=== PATIENT | female | born 1990 | race Hispanic/Latino ===

== ENCOUNTER 2018-03-17 11:43 | Inpatient (IN) | payer SELFPAY ==
[~2018-03-17] VITALS: Ht 160 cm; Wt 68.5 kg
[2018-03-17] MEDS ORDERED: EPHEDRINE SULFATE 50 MG/ML AMPULE IV ONE (12:00)
[2018-03-17] MEDS ORDERED: ATROPINE SULFATE 0.4 MG/ML 1 ML VIAL IJ ONE (12:00)
[2018-03-17] MEDS ORDERED: ONDANSETRON HCL 4 MG/2 ML VIAL IVP ONE (12:00)
[2018-03-17] MEDS ORDERED: LACTATED RINGERS 1000ML 1,000 ML IV PRN (12:05)
[2018-03-17 12:20] LABS: APPEARANCE,URINE Cloudy (CLEAR); BILIRUBIN,URINE Large (NEGATIVE); COLOR,URINE Dark Yellow (YELLOW); GLUCOSE, URINE (UA) Negative (NEGATIVE); KETONES,URINE Negative (NEGATIVE); LEUKOCYTE ESTERASE ,URINE Small (NEGATIVE); NITRATE,URINE Positive (NEGATIVE); OCCULT BLOOD,URINE Negative (NEGATIVE); PROTEIN,URINE POS 1+ (NEGATIVE)
[2018-03-17 12:25] LABS: BACTERIA,URINE Rare /HPF (None Seen); RBC,URINE 0-1 /HPF (0-1); SQUAMOUS EPITHELIAL CELL,UR Rare /HPF (0-2); WBC,URINE 0-1 /HPF (0-1)
[2018-03-17 12:45] LABS: HEMATOCRIT 33.6 % (36-48); MEAN CORPUSCULAR HEMOGLOBIN 31.9 pg (27.0-33.0); MEAN CORPUSCULAR HGB CONC 34.4 g/dL (32.0-36.0); MEAN CORPUSCULAR VOLUME 92.7 fL (79-99); NUCLEATED RED BLOOD CELLS 0.1 % (0.0-0.19); PLATELET COUNT (AUTO) 87 K/uL (130-400); RED BLOOD CELL COUNT(AUTO) 3.62 MIL/uL (4.00-5.50); RED CELL DISTRIBUTION WIDTH 14.4 % (11.0-15.5); WHITE BLOOD COUNT (AUTO) 5.8 K/uL (4.8-10.8)
[2018-03-17] MEDS ORDERED: CALDOLOR 800MG+NS 250ML 250 ML IV PRN (12:45)
[2018-03-17] MEDS ORDERED: LACTATED RINGERS 1000ML 1,000 ML IV SCH (12:45)
[2018-03-17] MEDS ORDERED: CEFAZOLIN SODIUM 1 GM VIAL IVP PRN (12:45)
[2018-03-17] MEDS ORDERED: OXYTOCIN 10 USP UNITS/ML ONE ×2 (12:54→22:05)
[2018-03-17] MEDS ORDERED: CEFAZOLIN SODIUM 1 GM VIAL ONE (12:54)
[2018-03-17] MEDS ORDERED: CALDOLOR 800MG+NS 250ML 250 ML IV ONE (12:54)
[2018-03-17] MEDS ORDERED: CITRIC ACID/SODIUM CITRATE 30 ML UDCUP ONE (13:11)
[2018-03-17] MEDS ORDERED: METOCLOPRAMIDE 10 MG/2 ML VIAL ONE (13:11)
[2018-03-17] MEDS ORDERED: PROPOFOL 10 MG/ML 20ML VIAL IV ONE ×2 (13:15→14:53)
[2018-03-17] MEDS ORDERED: MIDAZOLAM HCL 1 MG/ML 2ML VIAL ONE (13:15)
[2018-03-17] MEDS ORDERED: FENTANYL CITRATE PF 50 MCG/1 ML 2ML VIAL ONE ×2 (13:15→14:20)
[2018-03-17 13:19] LABS: BASOPHILS % (AUTO) 0.4 % (0.0-5.0); EOSINOPHILS % (AUTO) 0.4 % (0.0-8.0); HEMATOCRIT 32.4 % (36-48); LYMPHOCYTES % (AUTO) 24.2 % (21.0-51.0); MEAN CORPUSCULAR HEMOGLOBIN 32.2 pg (27.0-33.0); MEAN CORPUSCULAR HGB CONC 34.6 g/dL (32.0-36.0); MEAN CORPUSCULAR VOLUME 93.1 fL (79-99); MONOCYTES % (AUTO) 5.8 % (3.0-13.0); NEUTROPHILS % (AUTO) 69.2 % (40.0-77.0); NUCLEATED RED BLOOD CELLS 0.1 % (0.0-0.19); PLATELET COUNT (AUTO) 79 K/uL (130-400); RED BLOOD CELL COUNT(AUTO) 3.47 MIL/uL (4.00-5.50); RED CELL DISTRIBUTION WIDTH 14.7 % (11.0-15.5)
[2018-03-17 13:33] LABS: CREATININE 0.8 mg/dL (0.5-1.5); POTASSIUM 3.9 mmol/L (3.5-5.1)
[2018-03-17 13:34] LABS: INR 0.87 (0.85-1.15); PARTIAL THROMBOPLASTIN TIME 26.8 SEC (26.3-35.5); PROTHROMBIN TIME 9.2 SEC (9.6-11.6)
[2018-03-17 13:37] LABS: ALBUMIN 1.9 g/dL (3.5-5.0); BILIRUBIN,TOTAL 1.6 mg/dL (0.2-1.0); TOTAL PROTEIN, SERUM 6.1 g/dL (6.0-8.3); URIC ACID 5.2 mg/dL (2.6-7.2)
[2018-03-17] MEDS ORDERED: METHYLERGONOVINE MALEATE 0.2 MG/1 ML ML ONE ×2 (14:03→17:04)
[2018-03-17] MEDS ORDERED: CARBOPROST TROMETHAMINE 250 MCG/ML AMP IM ONE ×2 (14:04→14:07)
[2018-03-17] MEDS ORDERED: MORPHINE SULFATE 10 MG/ML 1ML SYG ONE (14:10)
[2018-03-17] MEDS ORDERED: DiphenhydrAMINE HCL 50 MG/ML VIAL IV PRN (15:45)
[2018-03-17] MEDS ORDERED: MEPERIDINE 10MG/ML 50ML PCA 50 ML IV PRN (15:45)
[2018-03-17] MEDS ORDERED: ONDANSETRON HCL 4 MG/2 ML VIAL IV PRN (15:45)
[2018-03-17] MEDS ORDERED: DIPHENHYDRAMINE HCL 25 MG CAPSULE PO PRN (15:45)
[2018-03-17] MEDS ORDERED: DEXTROSE 5 %-0.45 % NACL 1,000 ML IV PRN (15:45)
[2018-03-17] MEDS ORDERED: PROMETHAZINE HCL 25 MG/ML 1ML AMPULE IM PRN (15:45)
[2018-03-17] MEDS ORDERED: NALOXONE HCL 0.4 MG/1 ML ML IVP PRN (15:45)
[2018-03-17 16:08] LABS: AMPHET/METH SCREEN,URINE NEGATIVE (NEGATIVE); BARBITURATE SCREEN, URINE NEGATIVE (NEGATIVE); BENZODIAZEPINES SCREEN,URINE NEGATIVE (NEGATIVE); CANNABINOID SCREEN,URINE NEGATIVE (NEGATIVE); COCAINE SCREEN,URINE NEGATIVE (NEGATIVE); OPIATE SCREEN,URINE NEGATIVE (NEGATIVE); PHENCYCLIDINE SCREEN,URINE NEGATIVE (NEGATIVE)
[2018-03-17] MEDS: METHYLERGONOVINE MALEATE 0.2 MG/1 ML ML IM SCH (17:15)
[2018-03-17] MEDS ORDERED: MEPERIDINE-PF 50 MG/ML SYG ONE (18:16)
[2018-03-17] MEDS ORDERED: RACEPINEPHRINE HCL 2.25% 0.5 ML NEB SOLN NEB PRN (18:30)
[2018-03-17] MEDS ORDERED: IPRATROPIUM/ALBUTEROL SULFATE 3 ML SOLUTION IH PRN (18:30)
[2018-03-17] MEDS ORDERED: MAGNESIUM SULFATE 1,000 ML IV PRN (21:48)
[2018-03-17] MEDS ORDERED: MAGNESIUM 4GM PREMIX 100ML 100 ML IV ONE (21:50)
[2018-03-17] MEDS ORDERED: MAGNESIUM SULFATE 1,000 ML IV ONE (21:50)
[2018-03-17] MEDS ORDERED: MAGNESIUM 4GM PREMIX 100ML 100 ML IV PRN (22:00)
[2018-03-17] MEDS ORDERED: CALCIUM GLUCONATE 1 GM/10 ML VIAL IVP PRN (22:00)
[2018-03-17] MEDS ORDERED: CEFAZOLIN 2GM / 50 ML 50 ML IV SCH (22:45)
[2018-03-17] MEDS: CEFAZOLIN SODIUM 1 GM VIAL IVP SCH (22:59)
[2018-03-17] MEDS: LACTATED RINGERS 1000ML 1,000 ML IV SCH (23:15)
[2018-03-17 23:39] LABS: MEAN CORPUSCULAR HGB CONC 33.6 g/dL (32.0-36.0)
[2018-03-17] MEDS ORDERED: MISOPROSTOL 200 MCG TABLET ONE (23:43)
[2018-03-17 23:51] LABS: BASOPHILS % (AUTO) 0.3 % (0.0-5.0); LYMPHOCYTES % (AUTO) 6.3 % (21.0-51.0); MEAN CORPUSCULAR HEMOGLOBIN 30.3 pg (27.0-33.0); MEAN CORPUSCULAR VOLUME 90.4 fL (79-99); MONOCYTES % (AUTO) 4.3 % (3.0-13.0); NEUTROPHILS % (AUTO) 89.1 % (40.0-77.0); PLATELET COUNT (AUTO) 148 K/uL (130-400); RED CELL DISTRIBUTION WIDTH 14.9 % (11.0-15.5); WHITE BLOOD COUNT (AUTO) 13.9 K/uL (4.8-10.8)
[2018-03-17 23:55] LABS: INR 0.93 (0.85-1.15); PARTIAL THROMBOPLASTIN TIME 26.9 SEC (26.3-35.5); PROTHROMBIN TIME 9.8 SEC (9.6-11.6)
[2018-03-18] VITALS (28 sets, daily range): BP systolic 105–148; BP diastolic 48–93
[2018-03-18 00:02] LABS: ALBUMIN 1.4 g/dL (3.5-5.0); BILIRUBIN,TOTAL 2.8 mg/dL (0.2-1.0); POTASSIUM 4.6 mmol/L (3.5-5.1); TOTAL PROTEIN, SERUM 4.2 g/dL (6.0-8.3); URIC ACID 5.3 mg/dL (2.6-7.2)
[2018-03-18] MEDS: MISOPROSTOL 200 MCG TABLET PR SCH ×2 (00:05)
[2018-03-18] MEDS ORDERED: FUROSEMIDE 10 MG/ML 2ML VIAL ONE (00:37)
[2018-03-18] MEDS: FUROSEMIDE 10 MG/ML 4ML VIAL IV SCH ×2 (00:56→05:24)
[2018-03-18] MEDS ORDERED: SODIUM CHLORIDE 0.9% 1000ML 1,000 ML IV ONE (02:23)
[2018-03-18] MEDS ORDERED: LIDOCAINE HCL-MPF 1% 2ML VIAL IVP PRN (02:30)
[2018-03-18] MEDS ORDERED: POTASSIUM CHLORIDE 20MEQ/100ML 100 ML IV PRN (02:30)
[2018-03-18] MEDS ORDERED: POTASSIUM CHLORIDE 10% ELIXIR 20 MEQ/15 ML UDCUP PO PRN (02:30)
[2018-03-18] MEDS ORDERED: POTASSIUM CHLORIDE 20 MEQ ERTAB PO PRN (02:30)
[2018-03-18 03:01] LABS: BASOPHILS % (AUTO) 0.2 % (0.0-5.0); HEMATOCRIT 27.5 % (36-48); LYMPHOCYTES % (AUTO) 8.3 % (21.0-51.0); MEAN CORPUSCULAR HEMOGLOBIN 30.2 pg (27.0-33.0); MEAN CORPUSCULAR HGB CONC 33.6 g/dL (32.0-36.0); MEAN CORPUSCULAR VOLUME 90.1 fL (79-99); NEUTROPHILS % (AUTO) 85.5 % (40.0-77.0); PLATELET COUNT (AUTO) 137 K/uL (130-400); RED BLOOD CELL COUNT(AUTO) 3.05 MIL/uL (4.00-5.50); RED CELL DISTRIBUTION WIDTH 15.2 % (11.0-15.5); WHITE BLOOD COUNT (AUTO) 16.3 K/uL (4.8-10.8)
[2018-03-18] MEDS: LACTATED RINGERS 1000ML 1,000 ML IV SCH (05:25)
[2018-03-18] MEDS ORDERED: FUROSEMIDE 10 MG/ML 2ML VIAL IV ONE (07:00)
[2018-03-18] MEDS ORDERED: DIPH,PERTUSS(ACELL),TET VAC/PF 0.5 ML VIAL IM SCH (08:45)
[2018-03-18] MEDS ORDERED: BISACODYL 10 MG SUPP.RECT RC PRN (08:45)
[2018-03-18] MEDS ORDERED: MEASLES/MUMPS/RUBELLA VACCINE, LIVE 0.5 ML/VIAL SQ SCH (08:45)
[2018-03-18] MEDS ORDERED: PANTOPRAZOLE 40 MG/VIAL IV SCH (09:00)
[2018-03-18] MEDS: DOCUSATE SODIUM 100 MG CAP PO SCH ×2 (09:00→21:48)
[2018-03-18] MEDS: CALDOLOR 800MG+NS 250ML 250 ML IV SCH ×2 (09:39→17:35)
[2018-03-18 09:42] LABS: RAPID PLASMA REAGIN NONREACTIVE (NONREACTIVE)
[2018-03-18] MEDS: CEFAZOLIN SODIUM 1 GM VIAL IVP SCH ×2 (09:45→09:56)
[2018-03-18 09:52] LABS: BASOPHILS % (AUTO) 0.2 % (0.0-5.0); HEMATOCRIT 30.2 % (36-48); LYMPHOCYTES % (AUTO) 11.4 % (21.0-51.0); MEAN CORPUSCULAR HGB CONC 35.9 g/dL (32.0-36.0); MEAN CORPUSCULAR VOLUME 89.1 fL (79-99); MONOCYTES % (AUTO) 5.7 % (3.0-13.0); NEUTROPHILS % (AUTO) 82.7 % (40.0-77.0); NUCLEATED RED BLOOD CELLS 0.1 % (0.0-0.19); PLATELET COUNT (AUTO) 117 K/uL (130-400); RED BLOOD CELL COUNT(AUTO) 3.39 MIL/uL (4.00-5.50); RED CELL DISTRIBUTION WIDTH 14.5 % (11.0-15.5); WHITE BLOOD COUNT (AUTO) 14.9 K/uL (4.8-10.8)
[2018-03-18 09:53] LABS: INR 0.89 (0.85-1.15); PROTHROMBIN TIME 9.4 SEC (9.6-11.6)
[2018-03-18 09:57] LABS: ALBUMIN 1.2 g/dL (3.5-5.0); BILIRUBIN,TOTAL 1.9 mg/dL (0.2-1.0); MAGNESIUM 4.1 mg/dL (1.80-2.40); POTASSIUM 4.5 mmol/L (3.5-5.1); TOTAL PROTEIN, SERUM 4.2 g/dL (6.0-8.3)
[2018-03-18] MEDS ORDERED: PREN-66 PO (12:34)
[2018-03-18] MEDS: LIDOCAINE 5% TOPICAL PATCH TP SCH (15:09)
[2018-03-18] MEDS: METHYLERGONOVINE MALEATE 0.2 MG/1 ML ML IM SCH (15:14)
[2018-03-18] MEDS: SIMETHICONE 80 MG TAB.CHEW PO PRN (21:48)
[2018-03-18] MEDS ORDERED: WITCH HAZEL 1 PAD TP ONE (21:57)
[2018-03-18] MEDS ORDERED: WITCH HAZEL 1 PAD TP PRN (22:15)
[2018-03-18] MEDS: ACETAMINOPHEN-CODEINE 300/30MG TAB PO PRN (22:29)
[2018-03-19 00:39] VITALS: BP 137/78
[2018-03-19] MEDS: CALDOLOR 800MG+NS 250ML 250 ML IV SCH (02:15)
[2018-03-19 03:16] LABS: HEPATITIS Bs ANTIGEN SCREEN P Negative (Negative)
[2018-03-19 04:14] VITALS: BP 105/72
[2018-03-19 05:58] LABS: BASOPHILS % (AUTO) 0.2 % (0.0-5.0); EOSINOPHILS % (AUTO) 0.1 % (0.0-8.0); HEMATOCRIT 27.8 % (36-48); LYMPHOCYTES % (AUTO) 11.2 % (21.0-51.0); MEAN CORPUSCULAR HEMOGLOBIN 31.1 pg (27.0-33.0); MEAN CORPUSCULAR HGB CONC 34.9 g/dL (32.0-36.0); MEAN CORPUSCULAR VOLUME 89.3 fL (79-99); MONOCYTES % (AUTO) 3.8 % (3.0-13.0); NEUTROPHILS % (AUTO) 84.7 % (40.0-77.0); PLATELET COUNT (AUTO) 127 K/uL (130-400); RED BLOOD CELL COUNT(AUTO) 3.12 MIL/uL (4.00-5.50); RED CELL DISTRIBUTION WIDTH 14.9 % (11.0-15.5); WHITE BLOOD COUNT (AUTO) 9.9 K/uL (4.8-10.8)
[2018-03-19 06:07] LABS: CREATININE 0.8 mg/dL (0.5-1.5); POTASSIUM 4.4 mmol/L (3.5-5.1)
[2018-03-19 07:37] VITALS: BP 109/74
[2018-03-19] MEDS: DOCUSATE SODIUM 100 MG CAP PO SCH (08:58)
[2018-03-19] MEDS: SIMETHICONE 80 MG TAB.CHEW PO PRN ×2 (08:58→13:24)
[2018-03-19] MEDS: LIDOCAINE 5% TOPICAL PATCH TP SCH (08:58)
[2018-03-19] MEDS ORDERED: PANTOPRAZOLE SODIUM 40 MG TABLET.DR PO SCH (09:00)
[2018-03-19] MEDS: ACETAMINOPHEN-CODEINE 300/30MG TAB PO PRN ×2 (09:04→13:23)
[2018-03-19] MEDS: CEFAZOLIN SODIUM 1 GM VIAL IVP SCH (09:45)
[2018-03-19 11:43] VITALS: BP 115/77
[2018-03-19 13:48] LABS: ALBUMIN 1.7 g/dL (3.5-5.0); BILIRUBIN,TOTAL 0.9 mg/dL (0.2-1.0); POTASSIUM 4.8 mmol/L (3.5-5.1); TOTAL PROTEIN, SERUM 5.7 g/dL (6.0-8.3)
[2018-03-19 15:45] VITALS: BP 126/74
[2018-03-19] MEDS: METHYLERGONOVINE MALEATE 0.2 MG/1 ML ML IM SCH (17:15)
[2018-03-20 16:19] LABS: ROCKY MT SPOTTED FEVER IGG <1:64 (Neg:<1:64); TYPHUS FEVER AB IGG <1:64 (Neg:<1:64)
== END 2018-03-19 20:00 | disposition home or self-care (01) | DRG 765 ==
LOC: EDH 11:43 → OBSVTOIN 12:01 → LDH 12:01 → 2CH 03-18 03:45 → WSH 03-18 11:45
PROVIDERS: ATTEND Obstetrics & Gynecology
PROC: 30233R1 Transfusion of Nonautologous Platelets into Peripheral Vein, Percutaneous Approach (ICD-10-PCS; 2018-03-17)
PROC: 30233N1 Transfusion of Nonautologous Red Blood Cells into Peripheral Vein, Percutaneous Approach (ICD-10-PCS; 2018-03-17)
PROC: 3E0234Z Introduction of Serum, Toxoid and Vaccine into Muscle, Percutaneous Approach (ICD-10-PCS; 2018-03-17)
PROC: 3E0134Z Introduction of Serum, Toxoid and Vaccine into Subcutaneous Tissue, Percutaneous Approach (ICD-10-PCS; 2018-03-17)
PROC: 10D00Z1 Extraction of Products of Conception, Low, Open Approach (ICD-10-PCS; principal; 2018-03-17 13:00)
DX: O34.211 Maternal care for low transverse scar from previous cesarean delivery (principal); O99.12 Other diseases of the blood and blood-forming organs and certain disorders involving the immune mechanism complicating childbirth; D69.6 Thrombocytopenia, unspecified; E86.0 Dehydration; O62.2 Other uterine inertia; O77.0 Labor and delivery complicated by meconium in amniotic fluid; O99.02 Anemia complicating childbirth; O09.33 Supervision of pregnancy with insufficient antenatal care, third trimester; Z37.0 Single live birth; Z3A.38 38 weeks gestation of pregnancy; Z23 Encounter for immunization
CPT/HCPCS: 36415; 59510; 80048; 80053; 80305; 81001; 83735; 84550; 85025; 85027; 85049; 85384; 85610; 85730; 86592; 86701; 86757; 86850; 86900; 86901; 86922; 87088; 87340; 87390; 90707; 90715; 94664; A4218; A4344; A4606; C9113; J0461; J0690; J1741; J1940; J2175; J2210; J2250; J2270; J2405; J2590; J2704; J2765; J3010; J3475; J3490; J7030; J7120; P9016; P9034